=== PATIENT | male | born 1960 | race Hispanic/Latino ===

== ENCOUNTER 2021-10-31 05:37 | Emergency (ER) | payer BC, SELFPAY ==
--- NOTE | ~2021-10-31 | CT_ITS ---
EXAMINATION: CT abdomen pelvis wo con DATE: 10/31/2021 06:39 INDICATION: Left back and groin pain. TECHNIQUE: Computed tomography (CT) of the abdomen and pelvis was performed without intravenous contr ast. Automated exposure control and iterative reconstruction technique were employed. The dose-length product was 317.75 mGy-cm. COMPARISON: 11/12/2015 FINDINGS: Lung bases are clear. Heart size is normal. No pericardial or pleural effusion. A couple subcentimete r hepatic cysts. Couple small calcific foci at the periphery of the nondependent gallbladder which co uld represent either mural calcifications or gallstones. Pancreas, spleen, bilateral adrenal glands a nd kidneys are normal. Bladder is normal. No urolithiasis. Bowels including the appendix are normal. No free intraperitoneal gas or fluid. No pathologically enlarged abdominal or pelvic lymphadenopathy. Very small fat-containing umbilical hernia. Mild lumbar dextrocurvature with severe spondylosis. IMPRESSION: 1. Peripheral gallbladder calcifications consistent with either gallstones or mural calcifications. Reviewed, dictated and finalized at location [facility]. [employer] IMPRESSION: 1. Peripheral gallbladder calcifications consistent with either gallstones or m ural calcifications.
[2021-10-31 05:41] VITALS: BP 159/101; PULSE 72; RESP 100; TEMP 36.6; O2SAT 100
--- NOTE | 2021-10-31 06:11 | ED.BACK ---
HPI - Back Pain/Injury General Chief Complaint: Back Pain/Injury Stated Complaint: back pain Time Seen by Provider: 10/31/21 05:52 Source: patient History of Present Illness HPI Narrative: Patient presents with left-sided back pain. Patient reports history of spinal stenosis requiring surgical intervention previously his pain would radiate down to his leg causing numbness today his pain is isolated in his left back and does radiate to his groin. 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 His last procedural intervention was almost 1 year ago. Denies any focal numbness or weakness denies any urinary symptoms. Pain is achy, constant, worse with moving around it is in his left lumbar area and radiates to his groin Related Data Home Medications Medication Instructions Recorded Confirmed omega-3 fatty acids 1,000 mg 1,000 mg PO DAILY 08/17/19 08/12/21 capsule alprazolam mg PO 10/31/21 Allergies Allergy/AdvReac Type Severity Reaction Status Date / Time No Known Allergies Allergy Verified 08/12/21 08:32 Review of Systems Review of Systems: CONSTITUTIONAL: Denies fever, chills, or sweats. EYES: Denies visual changes, redness, or discharge. ENT: Denies rhinorrhea, congestion, sore throat, or otalgia. CARDIOVASCULAR: Denies chest pain, palpitations, or edema. RESPIRATORY: Denies cough or dyspnea. GASTROINTESTINAL: Denies abdominal pain, nausea, vomiting, or diarrhea. GENITOURINARY: Denies dysuria or hematuria. SKIN: Denies rash or itching. MUSCULOSKELETAL: Denies joint pain, or myalgia. NEUROLOGIC: Denies headache, numbness, dizziness, or weakness. PSYCHIATRIC: Denies anxiety or depression. All systems reviewed & are unremarkable except as noted in HPI and below PMFSH Past Medical History Medical History History of prostate cancer Family History Family History Other Cerebrovascular accident Diabetes mellitus Family history of arthritis Family history of gout Family history of heart disease in male family member before age 55 Family history of seizure disorder Hypertension Social History Social History Smoking status: Never smoker Alcohol intake: never Exam Narrative: GENERAL: Well-appearing, well-nourished, and in no acute distress. HEAD: Normocephalic, atraumatic. EYES: PERRLA and EOMI. ENT: Nares clear, no rhinorrhea or epistaxis. Mucous membranes moist. NECK: Supple. No masses. No JVD CHEST: Clear to auscultation. No respiratory distress. No wheezes rales or rhonchi Back: Minimal tenderness with palpation in the left paraspinal area muscle spasm is noted. No CVA tenderness no midline neck pain EXTREMITIES: Normal range of motion. No edema. SKIN: Warm, dry, no rash. NEURO: No focal deficits. Alert and oriented x3. PSYCH: Normal mood and affect. Course Reevaluation(s) Reevaluation #1: Patient resting comfortably results and plan reviewed with patient. Patient is comfortable with the outpatient plan. Date: 10/31/21 Time: 07:03 Vital Signs Vital signs: Vital Signs Temperature 36.6 C 10/31/21 05:41 Pulse Rate 72 10/31/21 05:41 Respiratory Rate 100 H 10/31/21 05:41 Blood Pressure 159/101 H 10/31/21 05:41 Pulse Oximetry 100 10/31/21 05:41 Temperature 36.6 C 10/31/21 05:41 Pulse Rate 72 10/31/21 05:41 Respiratory Rate 100 H 10/31/21 05:41 Blood Pressure 159/101 H 10/31/21 05:41 Pulse Oximetry 100 10/31/21 05:41 MDM - Back Pain/Injury MDM Narrative Medical decision making narrative: H&P as above, vss, pt looks clinically well, exam without focal neurological deficits, without acute process, additional labs/img considered, symptomatic relief available as needed, on reevaluation pt milad
[2021-10-31] MEDS: CYCLOBENZAPRINE HCL 10 MG TABLET PO (06:19)
[2021-10-31 06:25] LABS: Add Urine Microscopic? NO; Appearance Urine Clear (Clear); Bilirubin Urine Negative (Negative); Blood Urine Negative (Negative); Color Urine Straw (Yellow); Glucose Urine UA Negative (Negative); Ketones Urine Negative (Negative); Leukocyte Esterase Ur Negative LEU/UL (Negative); Nitrate Urine Negative (Negative); Protein Urine Negative (Negative); Urobilinogen Urine Negative mg/dL (<2.0)
[2021-10-31 06:35] LABS: Specific Grav Ur 1.003 (1.001-1.035)
== END 2021-10-31 07:12 | disposition home or self-care (01) ==
PROVIDERS: Emergency Provider Emergency Medicine; PCP Internal Medicine
DX: M54.50 Low back pain, unspecified (principal)
CPT/HCPCS: 74176; 81003; 99284; A9270

== ENCOUNTER 2023-03-19 01:48 | Emergency (ER) | payer BC, SELFPAY ==
--- NOTE | ~2023-03-19 | CT_ITS ---
Non-contrast Head CT History: Headache Technique: Axial non-contrast imaging of the brain was performed. Dose reduction technique was used on this scan by utilizing automated exposure control and iterative reconstruction technique. The dose -length product (DLP) was 605.33 mGy-cm. Findings: There is no evidence of intracranial hemorrhage, mass lesion, or acute infarct. Brain par enchyma appears normal. The ventricles and subarachnoid spaces are normal in size. The calvarium ap pears normal. There is complete opacification of the right sphenoid sinus, with apparent dehiscence o f the roof of the sphenoid sinus/floor of the sella turcica.. 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 No other significant findings. Reviewed, dictated and finalized at [facility]. 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 No other significant findings.
--- NOTE | ~2023-03-19 | CT_ITS ---
Noncontrast CT scan of the cervical spine Technique: Multiple contiguous axial [address] images of the cervical spine were obtained and rec onstructed in 2D sagittal and coronal planes on the acquisition scanner. Dose reduction technique was used on this scan by utilizing automated exposure control, adjustment of the mA and/or kV according to patient size. The dose-length product (DLP) was 398.98 mGy-cm. Clinical History: Pain Findings: No acute fracture. There is reversal of the normal cervical lordosis. There is 4 mm anterol isthesis of C3 over C4. There is advanced degenerative disc narrowing at C3-C4 and C6-C7. There is mi ld degenerative disc change at C4-C5 and C5-C6. There is left neural foraminal narrowing at C3-C4 wit h advanced left facet arthropathy at this level. There is right neural foraminal narrowing at C6-C7, disc osteophyte complex present. No prevertebral soft tissue swelling. Impression: No fracture. 4 mm anterolisthesis of C3 over C4. Degenerative changes, as above. Reviewed, dictated and finalized at location [facility]. Impression: No fracture. 4 mm anterolisthesis of C3 over C4. Degenerative changes, as above.
[2023-03-19 01:53] VITALS: BP 135/94; PULSE 95; RESP 14; TEMP 36.8; O2SAT 99
--- NOTE | 2023-03-19 02:32 | ED.GENADULT ---
HPI - General Adult General Chief complaint: Neck Pain/Injury Stated complaint: neck pain Time Seen by Provider: 03/19/23 02:15 History of Present Illness HPI narrative: 62-year-old male presented the emergency department for evaluation of posterior scalp pain. Patient reports that he did have back surgery/fusion in the beginning of January. Patient states over the last few days he has had posterior neck pain. Patient was concerned that he could have an aneurysm. Patient denies any prior history of aneurysm denies any falls or injuries. Patient denies any associated numbness or weakness. Patient has been taking his home medications for pain control. Related Data Home Medications Medication Instructions Recorded Confirmed omega-3 fatty acids 1,000 mg 1,000 mg PO DAILY 08/17/19 09/01/22 capsule (Fish Oil Concentrate) gabapentin 300 mg capsule 300 mg PO BID 03/04/22 09/01/22 methocarbamol 500 mg tablet 500 mg PO QHS 03/12/23 vibegron 75 mg tablet (Gemtesa) 75 mg PO DAILY 03/16/23 Allergies Allergy/AdvReac Type Severity Reaction Status Date / Time No Known Allergies Allergy Verified 03/12/23 07:47 Review of Systems Review of Systems: All systems reviewed & are unremarkable except as noted in HPI and below PMFSH Past Medical History Medical History History of prostate cancer Family History Family History Other Cerebrovascular accident Diabetes mellitus Family history of arthritis Family history of gout Family history of heart disease in male family member before age 55 Family history of seizure disorder Hypertension Social History Social History (Updated 03/12/23 @ 08:00 by Anju Pnieda CMA) Smoking status: Never smoker Alcohol intake: never Substance use: never Substance use type: does not use Lack of Transportation: No Lack of Food: Never True Current Housing: I Have Housing Concerned About Future Housing: No Difficulty Paying Gas/Electric Bills: No Difficulty Paying for Meds: No Currently Unemployed: No Education: High School Diploma/GED Difficulty w/ Childcare or Family Care: No Exam Narrative: APPEARANCE: Well appearing, no pain, no distress, well-nourished. HEAD: normocephalic, atraumatic. EYES: PERRLA/EOMI, conjunctivae clear. NOSE: Normal no drainage EARS:TMS clear with good light reflex. THROAT: Pharynx clear, no exudate. NECK: Supple. No adenopathy, no masses. Posterior scalp pain without reproducible tenderness RESPIRATORY: Airway patent, respirations nonlabored. Clear to auscultation bilaterally, no rales, rhonchi, wheezing. CARDIOVASCULAR: Regular rate and rhythm without murmurs rubs or gallops. ABDOMINAL: Soft, nontender, nondistended, normal bowel sounds MUSCULOSKELETAL: Moves all extremities. Strength/ROM intact, No edema, No calf tenderness. NEURO: Alert. Cranial nerves II through XII intact. Good gait. Good coordination SKIN: Warm, dry. Normal Color Course Course Emergency Course: 62-year-old male presented to the emergency department for evaluation of head and neck pain. Patient was updated on the plan to obtain CTs of head and neck. Head and neck CT were negative for acute injury. Patient was encouraged to continue taking his home medications for pain control. Suspect muscular strain but no evidence of fracture or intracranial abnormality. Patient was updated the results of his imaging. Vital Signs Vital signs: Vital Signs Temperature 98.2 F 03/19/23 01:53 Pulse Rate 95 03/19/23 01:53 Respiratory Rate 14 03/19/23 01:53 Blood Pressure 135/94 H 03/19/23 01:53 Pulse Oximetry 99 03/19/23 01:53 Oxygen Delivery Room Air 03/19/23 01:53 Temperature 98.2 F 03/19/23 01:53 Pulse Rate 92 03/19/23 06:04 Respiratory Rate 15 03/19/23 06:04 Blood Pressure 135/98 H 03/19/23 06:04 Pulse Oxi
[2023-03-19 03:59] VITALS: BP 148/100; PULSE 96; RESP 15; O2SAT 100
[2023-03-19 06:04] VITALS: BP 135/98; PULSE 92; RESP 15; O2SAT 96
== END 2023-03-19 06:05 | disposition home or self-care (01) ==
PROVIDERS: Emergency Provider Emergency Medicine; PCP Family Medicine
DX: R51.9 Headache, unspecified (principal); Z85.46 Personal history of malignant neoplasm of prostate; Z98.1 Arthrodesis status
CPT/HCPCS: 70450; 72125; 99284

== ENCOUNTER 2024-01-12 08:45 | Outpatient (CLI) | payer BC, SELFPAY ==
[2024-01-19 19:27] VITALS: BMI 27.1
--- NOTE | 2024-01-19 19:27 | WPDHOMESLEEP ---
Sleep Study - Home Unattended Date of Study: 01/12/24 Ordering Provider: Db Segovia, Interpreting Provider: Corina Bess, DO Home Sleep Study Type: Watch PAT Height: 1.57 m Weight: 67.132 kg Body Mass Index: 27.1 Neck Circumference (inches): 15 [place]: 5 Reason for Sleep Study Nocturia Sleep History The patient is a 63-year-old male with anxiety, hyperactivity of bladder, scoliosis, hyperlipidemia and arthritis that had a sleep study ordered by his primary care physician for evaluation of sleep apnea. The patient rarely awakens from sleep short of breath. He rarely awakens at night with heartburn, belching or cough. He frequently snores and is frequently loud enough that others complain. He denies having trouble sleeping when he has a cold. He denies waking up gasping for air throughout the night. He occasionally has breathing problems at night observed by himself or others. He denies sweating excessively at night. He denies having heart palpitations or irregular heartbeats during the night. He denies falling asleep during the day and while driving. He denies sleep paralysis, cataplexy and hypnagogic / hypnopompic hallucinations. He denies having trouble at school or work due to sleepiness. He denies feeling afraid of going to sleep. He rarely has nightmares. He frequently remembers his dreams. He denies having thoughts racing through his mind. He denies feeling sad, depressed and anxious. He denies having muscular tension. He denies noticing parts of his body jerk. He denies kicking during the night. He rarely has crawling and aching feelings in his legs and rarely has leg pain during the night. He denies grinding his teeth during sleep and denies awakening with morning jaw pain. He is rarely bothered by pain during the day a rarely awakened by pain during the night. He rarely wakes up feeling stiff in the morning. He rarely wakes up with sore or achy muscles. He rarely wakes up with pain in the neck, spine and other joints. He goes to bed at 9:00 p.m. on both weekdays and weekends. It takes him 15 minutes to fall asleep. He wakes up 4-5 times throughout the night to urinate and is able to fall back asleep immediately. He wakes up at 5:00 a.m. on both weekdays and weekends. He typically gets 6 hours of sleep per night. He does not stay in bed after waking up in the morning. He currently lives with his . He denies consuming any caffeinated beverages within 2 hours of bedtime. He denies engaging in physical exercise before bedtime. He will watch television before falling asleep. He will occasionally take naps in the afternoon or the evening and they are refreshing. He consumes 1 cup of coffee per day. He consumes alcoholic beverages once or twice per month. He denies tobacco and recreational drug use. [facility] Past Medical History Medical History History of prostate cancer Family History Family History Other Cerebrovascular accident Diabetes mellitus Family history of arthritis Family history of gout Family history of heart disease in male family member before age 55 Family history of seizure disorder Hypertension Social History Social History Smoking status: Never smoker Alcohol intake: never Substance use: never Substance use type: does not use Lack of Transportation: No Lack of Food: Never True Current Housing: I Have Housing Concerned About Future Housing: No Difficulty Paying Gas/Electric Bills: No Difficulty Paying for Meds: No Currently Unemployed: No Education: High School Diploma/GED Difficulty w/ Childcare or Family Care: No Medications Home Medications Medication Instructions Recorded Confirmed Type omega-3 fatty acids 1,000 mg 1,000 mg PO DAILY 08/17/19 1
== END 2024-01-13 07:30 | disposition home or self-care (01) ==
LOC: ANHCSM 08:46
PROVIDERS: PCP Family Medicine; Visit Provider Family Medicine
DX: G47.30 Sleep apnea, unspecified (principal); G47.33 Obstructive sleep apnea (adult) (pediatric)
CPT/HCPCS: 95800